=== PATIENT | male | born 1985 | race Caucasian/White ===

== ENCOUNTER 2017-04-17 11:58 | Inpatient (IN) | payer OTHER ==
[2017-04-17 16:04] VITALS: BMI 22.4
[2017-04-17] MEDS ORDERED: MAG HYDROX/AL HYDROX/SIMETH 30 ML UNIT-DOSE CUP PO PRN (17:33)
[2017-04-17] MEDS ORDERED: MAGNESIUM CITRATE 300 ML BOTTLE PO PRN (17:33)
[2017-04-17] MEDS ORDERED: guaiFENesin/D-METHORPHAN HB 10 ML UNIT-DOSE CUPS PO PRN (17:33)
[2017-04-17] MEDS ORDERED: ACETAMINOPHEN 325 MG TABLET (FP) PO PRN (17:33)
[2017-04-17] MEDS ORDERED: P-EPHED 60MG/TRIPROLIDI 2.5MG TABLET PO PRN (17:33)
[2017-04-17] MEDS ORDERED: MAGNESIUM HYDROX 2400MG/30ML ORAL SUSPENSION 30 ML CUP PO PRN (17:33)
[2017-04-17] MEDS ORDERED: MENTHOL/PHENOL 1 EACH UD MM PRN (17:33)
[2017-04-17] MEDS ORDERED: LOPERAMIDE HCL 2 MG CAPSULE PO PRN (17:33)
--- NOTE | 2017-04-17 17:38 | HP ---
Admission [facility] Chief Complaint: I WANT TO GO TO REHAB Allergies/Adverse Reactions: Allergies Allergy/AdvReac Type Severity Reaction Status Date / Time No Known Allergies Allergy Verified 04/17/17 17:37 History of Present Illness: 32 YEARS OLD MALE WITH LONG HISTORY OF STIMULANTS DEPENDENCE HAS HIV GERD, NASAL CONGESTION, S ADMITTED TO REHAB Exam Limitations: No Limitations - Ebola screening Have you traveled outside of the country in the last 21 days: No Have you had contact with anyone from an Ebola affected area: No Have you been sick,other than usual withdrawal symptoms: No Do you have a fever: No - Review of Systems Constitutional: Loss of Appetite, Unintentional Wgt. Loss EENT: reports: Nose Congestion Respiratory: reports: No Symptoms reported Cardiac: reports: No Symptoms Reported GI: reports: Diarrhea : reports: No Symptoms Reported Musculoskeletal: reports: No Symptoms Reported Integumentary: reports: Change in Color (IV STIMULANTS) Neuro: reports: No Symptoms reported Endocrine: reports: No Symptoms Reported Hematology: reports: No Symptoms Reported Psychiatric: reports: Judgement Intact, Orientated x3, Depressed (RIGHT AND LEFT INNER ARMS) Other Systems: Reviewed and Negative Patient History - Patient Medical History Hx Anemia: No Hx Asthma: Yes Hx Chronic Obstructive Pulmonary Disease (COPD): No Hx Cancer: No Hx Cardiac Disorders: No Hx Congestive Heart Failure: No Hx Hypertension: No Hx Hypercholesterolemia: No Hx Pacemaker: No HX Cerebrovascular Accident: No Hx Seizures: No Hx Dementia: No Hx Diabetes: No Hx Gastrointestinal Disorders: Yes (CHRONIC DIARRHEA) Hx Liver Disease: No Hx Genitourinary Disorders: No Hx Sexually Transmitted Disorders: Yes (HERPES) Hx Renal Disease (ESRD): No Hx Thyroid Disease: No Hx Human Immunodeficiency Virus (HIV): Yes Hx Hepatitis C: No Hx Depression: No Hx Suicide Attempt: No Hx Bipolar Disorder: No Hx Schizophrenia: No - PPD History Previous Implant?: Yes Documented Results: Negative w/o proof Implanted On Prior [facility] Admission?: No PPD to be Administered?: Yes - Smoking Cessation Smoking history: Smoker current status UNK Have you smoked in the past 12 months: No Hx Chewing Tobacco Use: No Initiated information on smoking cessation: No - Substance & Tx. History Hx Alcohol Use: No Hx Substance Use: Yes (STIMULANTS) Substance Use Type: None Family Disease History - Family Disease History Family Disease History: CA: Mother (BRAIN) Admission Physical Exam [facility] - Vital Signs Vital Signs: Vital Signs - 24 hr 04/17/17 15:56 Temperature 96.4 F L Pulse Rate 88 Respiratory 18 Rate Blood Pressure 97/50 - Physical General Appearance: Yes: No Apparent Distress, Appropriately Dressed, Thin HEENTM: Yes: Hearing grossly Normal, Normal ENT Inspection, Normocephalic, Normal Voice Respiratory: Yes: Chest Non-Tender, No Respiratory Distress, No Accessory Muscle Use, Wheezing Neck: Yes: Supple, Trachea in good position Breast: Yes: Breasts Symetrical Cardiology: Yes: Regular Rhythm, Regular Rate, S1, S2 Abdominal: Yes: Non Tender, Soft, Increased Bowel Sounds Genitourinary: Yes: Within Normal Limits Back: Yes: Normal Inspection Musculoskeletal: Yes: full range of Motion, Gait Steady Extremities: Yes: Normal Range of Motion, Non-Tender Neurological: Yes: Fully Oriented, Alert, Motor Strength 5/5, Normal Response, Depressed Affect Integumentary: Yes: Warm, Track Gonzalez Lymphatic: Yes: Within Normal Limits - Diagnostic (1) Methamphetamine dependence Current Visit: Yes Status: Acute (2) HIV (human immunodeficiency virus infection) Current Visit: Yes Status: Chronic (3) GERD (gastroesophageal reflux disease) Current Visit: Yes Status: Chronic Qualifiers: Esophagitis presence: without esophagitis Qualified Code(s): K21.9 - Gastro -esophageal reflux disease without esophagitis (4) Weight loss Current Visit: Yes Status: Acute (5) Asthma Current Visit: Yes Status: Chronic Qualifiers: Asthma severity: mild Asthma persistence: intermittent Asthma complication type: with status asthmaticus Qualified Code(s): J45.22 - Mild intermittent asthma with status asthmaticus (6) Nasal congestion Current Visit: Yes Status: Chronic (7) Mood disorder Current Visit: Yes Status: Suspected Cleared for Admission [facility] - Detox or Rehab [facility] Level of Care: Observation Bed Detox Regimen/Protocol: Not Applicable Claeared for Rehab Admission: Yes [facility] Breath Alcohol Content Breath Alcohol Content: 0 Urine Drug Screen - Control Is Test Valid: Yes - Results Drug Screen Negative: No Urine Drug Screen Results: AMP-Amphetamines, MET-Methamphetamine, TCA-Tricyclic Antidepress Inpatient Rehab Admission - Initial Determination Are CD services needed?: Yes Free of communicable disease: Yes Not in need of hospitalization: Yes - Rehab Admission Criteria Previous failed treatment: Yes Poor recovery environment: Yes Comorbidities: Yes Lacks judgement: No Patient is meeting Inpatient Rehab admission criteria:: Yes
[2017-04-17] MEDS ORDERED: ALBUTEROL SO4 18 GM HFA INHALER IH PRN (18:10)
[2017-04-17] MEDS ORDERED: diphenhydrAMINE HCL 50 MG CAPSULE PO PRN (18:11)
[2017-04-17] MEDS ORDERED: TUBERCULIN PPD 5 TU/0.1ML VIAL ID ONE (21:45)
[2017-04-17] MEDS ORDERED: LORATADINE 10 MG TABLET PO ONE (21:45)
--- NOTE | 2017-04-17 21:46 | PN ---
MIC Progress Note Note: received nurse call that the patient wants to take his hiv medication at night continue rehab
[2017-04-17] MEDS: THIAMINE HCL 100 MG TABLET (FP) PO SCH (21:50)
[2017-04-17 22:38] LABS: URINE APPEARANCE CLEAR; URINE BILIRUBIN NEGATIVE (NEGATIVE); URINE BLOOD NEGATIVE (NEGATIVE); URINE COLOR LTYELLOW; URINE GLUCOSE (UA) NEGATIVE (NEGATIVE); URINE KETONE NEGATIVE (NEGATIVE); URINE NITRITE NEGATIVE (NEGATIVE); URINE PROTEIN NEGATIVE (NEGATIVE); URINE UROBILINOGEN NEGATIVE mg/dL (0.2-1.0)
[2017-04-18] MEDS ORDERED: PATIENT'S OWN MEDICATION (NON-FORMULARY) (Elviteg/Cobi/Emtric/Tenofo Dis [Stribild Tablet] PO SCH (10:00)
[2017-04-18] MEDS ORDERED: LORATADINE PO SCH (10:00)
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
[2017-04-18] MEDS: PRENATAL VITAMINS W/ FOLIC ACID TABLET (FP) PO SCH (10:40)
[2017-04-18 11:40] LABS: URINE LEUK ESTERASE Negative (NEGATIVE)
[2017-04-18] MEDS: VALACYCLOVIR HCL PO SCH ×2 (11:51→22:13)
[2017-04-18] MEDS: SERTRALINE HCL 50 MG TABLET (FP) PO SCH (11:52)
[2017-04-18] MEDS: OLANZapine 5 MG TABLET PO SCH (11:52)
[2017-04-18 13:48] LABS: MCH 27.1 pg (25.7-33.7); MCHC 31.6 g/dl (32.0-35.9); MEAN CELL VOLUME 85.7 fl (80-96); MEAN PLT VOLUME 8.4 fl (7.5-11.1); PLATELET COUNT 283 K/MM3 (134-434); RDW 14.7 % (11.9-15.9); WHITE BLOOD COUNT 5.4 K/mm3 (4.0-10.0)
[2017-04-18 14:03] LABS: ALBUMIN 3.2 g/dl (3.4-5.0); ANION GAP 9 (8-16); CO2 30 mmol/L (21-32); GLUCOSE,RANDOM 74 mg/dL (74-106)
[2017-04-18 14:07] LABS: ALK PHOS 115 U/L (45-117); BILIRUBIN,TOTAL 0.3 mg/dL (0.2-1.0); SGOT/AST 35 U/L (15-37); SGPT/ALT 81 U/L (12-78); TOT PROT 6.8 g/dl (6.4-8.2)
--- NOTE | 2017-04-18 16:39 | EKG ---
Test Reason : Blood Pressure : / mmHG Vent. Rate : 090 BPM Atrial Rate : 090 BPM P-R Int : 138 ms QRS Dur : 084 ms QT Int : 334 ms P-R-T Axes : 067 062 046 degrees QTc Int : 408 ms NORMAL SINUS RHYTHM ANTEROSEPTAL INFARCT , AGE UNDETERMINED ABNORMAL ECG NO PREVIOUS ECGS AVAILABLE Confirmed by JULIENNE MCCONNELL MD ([id number]) on 04/18/2017 4:39:00 PM Referred By: Confirmed By:JULIENNE MCCONNELL MD
[2017-04-18] MEDS: PANTOPRAZOLE 40 MG TABLET (FP) PO SCH (17:41)
[2017-04-18] MEDS: LORATADINE 10 MG TABLET PO SCH ×2 (22:11)
[2017-04-18] MEDS: PATIENT'S OWN MEDICATION (NON-FORMULARY) (Elviteg/Cobi/Emtric/Tenofo Dis [Stribild Tablet] PO SCH (22:12)
[2017-04-18] MEDS: THIAMINE HCL 100 MG TABLET (FP) PO SCH (22:13)
[2017-04-18] MEDS: TETRAHYDROZOLINE HCL 1 DROP DROPS OU PRN (22:14)
[2017-04-18] MEDS: traZODone HCL 50 MG TABLET (FP) PO SCH (22:14)
[2017-04-19] MEDS: PRENATAL VITAMINS W/ FOLIC ACID TABLET (FP) PO SCH (10:08)
[2017-04-19] MEDS: SERTRALINE HCL 50 MG TABLET (FP) PO SCH (10:08)
[2017-04-19] MEDS: OLANZapine 5 MG TABLET PO SCH (10:08)
[2017-04-19] MEDS: PANTOPRAZOLE 40 MG TABLET (FP) PO SCH (10:08)
[2017-04-19] MEDS: TETRAHYDROZOLINE HCL 1 DROP DROPS OU PRN (11:58)
[2017-04-19] MEDS: VALACYCLOVIR HCL PO SCH ×3 (16:12→22:13)
[2017-04-19] MEDS: PATIENT'S OWN MEDICATION (NON-FORMULARY) (Elviteg/Cobi/Emtric/Tenofo Dis [Stribild Tablet] PO SCH ×2 (16:29→21:31)
[2017-04-19] MEDS: LORATADINE 10 MG TABLET PO SCH ×2 (16:36→21:30)
[2017-04-19] MEDS: traZODone HCL 50 MG TABLET (FP) PO SCH (21:30)
[2017-04-19] MEDS: THIAMINE HCL 100 MG TABLET (FP) PO SCH (21:30)
[2017-04-19] MEDS: valACYclovir HCL 500 MG TABLET (FP) PO SCH (22:13)
[2017-04-20] MEDS: TETRAHYDROZOLINE HCL 1 DROP DROPS OU PRN (07:31)
[2017-04-20] MEDS: SERTRALINE HCL 50 MG TABLET (FP) PO SCH (10:00)
[2017-04-20] MEDS: PANTOPRAZOLE 40 MG TABLET (FP) PO SCH (10:00)
[2017-04-20] MEDS: PRENATAL VITAMINS W/ FOLIC ACID TABLET (FP) PO SCH (10:00)
[2017-04-20] MEDS: OLANZapine 5 MG TABLET PO SCH (10:00)
[2017-04-20] MEDS: valACYclovir HCL 500 MG TABLET (FP) PO SCH ×2 (10:00→21:28)
[2017-04-20] MEDS: VALACYCLOVIR HCL PO SCH (12:55)
[2017-04-20] MEDS: BISMUTH SUBSALICYLATE 262 MG/15 ML BTL PO PRN (19:49)
[2017-04-20] MEDS: traZODone HCL 50 MG TABLET (FP) PO SCH (21:28)
[2017-04-20] MEDS: PATIENT'S OWN MEDICATION (NON-FORMULARY) (Elviteg/Cobi/Emtric/Tenofo Dis [Stribild Tablet] PO SCH (21:28)
[2017-04-20] MEDS: THIAMINE HCL 100 MG TABLET (FP) PO SCH (21:28)
[2017-04-20] MEDS: LORATADINE 10 MG TABLET PO SCH (21:29)
[2017-04-21] MEDS: PRENATAL VITAMINS W/ FOLIC ACID TABLET (FP) PO SCH (09:49)
[2017-04-21] MEDS: PANTOPRAZOLE 40 MG TABLET (FP) PO SCH (09:49)
[2017-04-21] MEDS: SERTRALINE HCL 50 MG TABLET (FP) PO SCH (09:49)
[2017-04-21] MEDS: valACYclovir HCL 500 MG TABLET (FP) PO SCH ×2 (09:49→21:28)
[2017-04-21] MEDS: OLANZapine 5 MG TABLET PO SCH (09:49)
[2017-04-21] MEDS: LORATADINE 10 MG TABLET PO SCH (21:28)
[2017-04-21] MEDS: traZODone HCL 50 MG TABLET (FP) PO SCH (21:28)
[2017-04-21] MEDS: THIAMINE HCL 100 MG TABLET (FP) PO SCH (21:28)
[2017-04-21] MEDS: PATIENT'S OWN MEDICATION (NON-FORMULARY) (Elviteg/Cobi/Emtric/Tenofo Dis [Stribild Tablet] PO SCH (21:29)
[2017-04-22] MEDS: valACYclovir HCL 500 MG TABLET (FP) PO SCH ×2 (09:52→21:35)
[2017-04-22] MEDS: SERTRALINE HCL 50 MG TABLET (FP) PO SCH (09:52)
[2017-04-22] MEDS: PANTOPRAZOLE 40 MG TABLET (FP) PO SCH (09:52)
[2017-04-22] MEDS: OLANZapine 5 MG TABLET PO SCH (09:52)
[2017-04-22] MEDS: PRENATAL VITAMINS W/ FOLIC ACID TABLET (FP) PO SCH (09:52)
--- NOTE | 2017-04-22 11:58 | PN ---
MIC Progress Note Note: Patient requests to discontinue Zoloft because he alleges it gives him headache
[2017-04-22] MEDS: TOLNAFTATE 1% CREAM 15 GM TUBE TP SCH ×2 (14:17→21:37)
[2017-04-22] MEDS: BISMUTH SUBSALICYLATE 262 MG/15 ML BTL PO PRN (17:46)
[2017-04-22] MEDS: PATIENT'S OWN MEDICATION (NON-FORMULARY) (Elviteg/Cobi/Emtric/Tenofo Dis [Stribild Tablet] PO SCH (21:35)
[2017-04-22] MEDS: traZODone HCL 50 MG TABLET (FP) PO SCH (21:35)
[2017-04-22] MEDS: THIAMINE HCL 100 MG TABLET (FP) PO SCH (21:35)
[2017-04-22] MEDS: LORATADINE 10 MG TABLET PO SCH (21:35)
[2017-04-23] MEDS: IBUPROFEN 400 MG TABLET (FP) PO PRN ×3 (05:59→21:52)
[2017-04-23] MEDS: PRENATAL VITAMINS W/ FOLIC ACID TABLET (FP) PO SCH (09:52)
[2017-04-23] MEDS: PANTOPRAZOLE 40 MG TABLET (FP) PO SCH (09:52)
[2017-04-23] MEDS: TOLNAFTATE 1% CREAM 15 GM TUBE TP SCH ×2 (09:52→21:53)
[2017-04-23] MEDS: OLANZapine 5 MG TABLET PO SCH (09:54)
[2017-04-23] MEDS: valACYclovir HCL 500 MG TABLET (FP) PO SCH ×2 (09:54→21:50)
--- NOTE | 2017-04-23 12:11 | PN ---
Psychiatric Progress Note Vital Signs: Vital Signs Period Temp Pulse Resp BP Sys/Mcelroy Pulse Ox Last 24 Hr 98.9 F 110 18-20 118/79 Date of Session: 04/23/17 Chief Complaint:: Discharge Note HPI: Patient addressing Methamphetamine Dependence comorbid with Mood Disorder and OCD ROS: Asthma, GERD, HIV+ were medically managed Current Medications: Active Medications Generic Name Dose Route Start Last Admin Trade Name Freq PRN Reason Stop Dose Admin Acetaminophen 650 mg 04/17/17 17:33 Tylenol - PO Q4H PRN PAIN Al Hydroxide/Mg Hydroxide 30 ml 04/17/17 17:33 Mylanta Oral Suspension - PO Q6H PRN DYSPEPSIA Albuterol Sulfate 2 puff 04/17/17 18:10 Ventolin Hfa Inhaler - IH Q4H PRN ASTHMA Bismuth Subsalicylate 30 ml 04/19/17 12:02 04/22/17 17:46 Pepto-Bismol Liquid - PO 30 ml DAILY PRN Administration DIARRHEA Diphenhydramine HCl 50 mg 04/17/17 18:11 04/17/17 21:43 Benadryl - PO 50 mg HS PRN Administration INSOMNIA Eucalyptus/Menthol/Phenol/Sorbitol 1 each 04/17/17 17:33 Cepastat Lozenge - MM Q4H PRN SORE THROAT Guaifenesin 10 ml 04/17/17 17:33 04/18/17 06:30 Robitussin Dm - PO 10 ml Q6H PRN Administration COUGH Ibuprofen 400 mg 04/17/17 17:33 04/23/17 05:59 Motrin - PO 400 mg Q6H PRN Administration SEVERE PAIN Loperamide HCl 4 mg 04/17/17 17:33 Imodium - PO Q6H PRN DIARRHEA Loratadine 10 mg 04/17/17 22:00 04/22/17 21:35 Claritin - PO 10 mg HS ARCENIO Administration Magnesium Citrate 300 ml 04/17/17 17:33 Citroma - PO Q48H PRN CONSTIPATION Magnesium Hydroxide 30 ml 04/17/17 17:33 Milk Of Magnesia - PO DAILY PRN CONSTIPATION Non-Formulary Medication 1 each 04/17/17 22:00 04/22/17 21:35 Elviteg/Aparna/Emtric/Tenofo Dis [Stribild Tablet] PO 1 each HS ARCENIO Administration Olanzapine 5 mg 04/18/17 11:43 04/23/17 09:54 Zyprexa - PO Not Given DAILY ARCENIO Pantoprazole Sodium 40 mg 04/18/17 17:30 04/23/17 09:52 Protonix - PO 40 mg DAILY ARCENIO Administration Multivit/Folic Acid/Iron 1 tab 04/18/17 10:00 04/23/17 09:52 Vitamins ([facility]) - PO 1 tab DAILY ARCENIO Administration Tetrahydrozoline HCl 1 drop 04/18/17 16:41 04/20/17 07:31 Visine - OU 1 drop BID PRN Administration DRY EYES Thiamine HCl 100 mg 04/17/17 22:00 04/22/17 21:35 Vitamin B1 - PO 100 mg HS ARCENIO Administration Tolnaftate 1 applic 04/22/17 13:45 04/23/17 09:52 Tinactin 1% Cream - TP Not Given BID ARCENIO Trazodone HCl 50 mg 04/18/17 22:00 04/22/17 21:35 Desyrel - PO 50 mg HS ARCENIO Administration Valacyclovir HCl 500 mg 04/19/17 20:45 04/23/17 09:54 Valtrex - PO 500 mg BID ARCENIO Administration Current Side Effect: No Lab tests ordered: Yes Lab tests reviewed: Yes Provider note:: Patient will complete this program on 04/24/17. He has met his treatment goals and will continue to address his issues in outpatient treatment at [facility]. 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 He went on to say that last night for the first time in his life, he revealed his HIV status in group and felt relieved doing it. He says that he does not care anymore what people think or say about him. He responded well to Zyprexa 5 mg po daily and Trazadone 50 mg po HS. Scripts for 30 days supply of medications will be electronically transmitted to [facility] at [address] [place] [id number]. He is stable for discharge on 04/24/17 Total face to face time:: 35 Mental Status Exam - Mental Status Exam Alert and Oriented to: Time, Place, Person Cognitive Function: Fair Patient Appearance: Well Groomed Mood: Hopeful, Euthymic Affect: Appropriate Patient Behavior: Cooperative Speech Pattern: Clear Voice Loudness: Normal Thought Process: Intact, Goal Oriented Thought Disorder: Not Present Hallucinations: Denies Suicidal Ideation: Denies Homicidal Ideation: Denies Insight/Judgement: Fair Sleep: Fair Appetite: Good Muscle strength/Tone: Normal Gait/Station: Normal Psychiatric Treatment Plan - Problem List (1) Methamphetamine dependence Current Visit: Yes (2) Mood disorder Current Visit: Yes (3) OCD (obsessive compulsive disorder) Current Visit: Yes (4) Asthma Current Visit: Yes Qualifiers: Asthma severity: mild Asthma persistence: intermittent Asthma complication type: with status asthmaticus Qualified Code(s): J45.22 - Mild intermittent asthma with status asthmaticus (5) GERD (gastroesophageal reflux disease) Current Visit: Yes Qualifiers: Esophagitis presence: without esophagitis Qualified Code(s): K21.9 - Gastro -esophageal reflux disease without esophagitis (6) HIV (human immunodeficiency virus infection) Current Visit: Yes Initial treatment plan: Patient will be discharged tomorrow and referred to [facility] for outpatient treatment
[2017-04-23] MEDS: LORATADINE 10 MG TABLET PO SCH (21:50)
[2017-04-23] MEDS: THIAMINE HCL 100 MG TABLET (FP) PO SCH (21:50)
[2017-04-23] MEDS: traZODone HCL 50 MG TABLET (FP) PO SCH (21:50)
[2017-04-23] MEDS: PATIENT'S OWN MEDICATION (NON-FORMULARY) (Elviteg/Cobi/Emtric/Tenofo Dis [Stribild Tablet] PO SCH (21:51)
[2017-04-24 07:05] VITALS: BP 132/67; PULSE 89; TEMP 97
[2017-04-24] MEDS: PANTOPRAZOLE 40 MG TABLET (FP) PO SCH (09:34)
[2017-04-24] MEDS: PRENATAL VITAMINS W/ FOLIC ACID TABLET (FP) PO SCH (09:34)
[2017-04-24] MEDS: TOLNAFTATE 1% CREAM 15 GM TUBE TP SCH (09:34)
[2017-04-24] MEDS: OLANZapine 5 MG TABLET PO SCH (09:34)
[2017-04-24] MEDS: valACYclovir HCL 500 MG TABLET (FP) PO SCH (09:34)
[2017-04-24] MEDS ORDERED: PT OWN MED DRAWER 7, Y5N ONE (09:41)
== END 2017-04-24 09:45 | disposition home or self-care (01) | DRG 772 ==
LOC: YASAS 11:58 → Y3W 18:31
PROVIDERS: ADMIT Psychiatry & Neurology Psychiatry; ATTEND Psychiatry & Neurology Psychiatry
PROC: HZ42ZZZ Group Counseling for Substance Abuse Treatment, Cognitive-Behavioral (ICD-10-PCS; principal; 2017-04-17)
DX: F15.20 Other stimulant dependence, uncomplicated (principal); F39 Unspecified mood [affective] disorder; F42.9 Obsessive-compulsive disorder, unspecified; J45.22 Mild intermittent asthma with status asthmaticus; K21.9 Gastro-esophageal reflux disease without esophagitis; Z21 Asymptomatic human immunodeficiency virus [HIV] infection status; R09.81 Nasal congestion; Z87.438 Personal history of other diseases of male genital organs; Z87.898 Personal history of other specified conditions
CPT/HCPCS: 36415; 80053; 81003; 85027; 86593; 93005; 93010